=== PATIENT | female | born 1980 | race American Indian/Alaskan Native ===

== ENCOUNTER 2018-07-02 16:17 | Outpatient (CLI) | payer OTHER | END 2018-07-02 17:57 | disposition home or self-care (01) | LOC: NST 16:17 | DX: Z34.83 Encounter for supervision of other normal pregnancy, third trimester (principal) ==

== ENCOUNTER 2018-08-22 10:00 | Inpatient (IN) | payer OTHER ==
[~2018-08-22] VITALS: Ht 149.9 cm; Wt 64.0 kg
[2018-09-08] MEDS ORDERED: MAXFE CAPLET1 EACH PO (03:31)
== END 2018-09-10 11:34 | disposition home or self-care (01) | DRG 807 ==
LOC: LDR 09-08 02:55 → OB/GYN 09-08 02:55
PROVIDERS: ADMIT Obstetrics & Gynecology
PROC: 10E0XZZ Delivery of Products of Conception, External Approach (ICD-10-PCS; principal; 2018-09-08)
PROC: 4A0HXFZ Measurement of Products of Conception, Cardiac Rhythm, External Approach (ICD-10-PCS; 2018-09-08)
DX: O80 Encounter for full-term uncomplicated delivery (principal); Z37.0 Single live birth; Z3A.38 38 weeks gestation of pregnancy